=== PATIENT | male | born 1950 | race Caucasian/White ===

== ENCOUNTER 2023-08-15 06:11 | Day surgery (SDC) | payer OTHER ==
[2023-08-09 11:44] VITALS: BMI 26.2
[2023-08-15] MEDS ORDERED: CEFAZOLIN 2 GM in DEXTROSE 5%-WATER - 100 ML IVPB ONE (06:25)
[2023-08-15] MEDS ORDERED: VANCOMYCIN 1,000 MG VIAL (RESTRICTED TO ID ONLY) ONE (07:13)
[2023-08-15] MEDS ORDERED: TRANEXAMIC ACID 1000 MG/10 ML VIAL ONE (07:13)
[2023-08-15] MEDS ORDERED: ROPIVACAINE HCL 0.5% 30ML VIAL ONE (07:22)
[2023-08-15] MEDS ORDERED: MIDAZOLAM HCL 2 MG/2 ML SINGLE DOSE VIAL ONE (07:22)
[2023-08-15] MEDS ORDERED: ROCURONIUM BROMIDE 50 MG/5 ML SYRINGE ONE (07:38)
[2023-08-15] MEDS ORDERED: PROPOFOL 20 ML ONE ×2 (07:38→09:55)
[2023-08-15] MEDS: VANCOMYCIN 1,000 MG VIAL (RESTRICTED TO ID ONLY) IVPB ONE (09:36)
[2023-08-15] MEDS ORDERED: NEOSTIGMINE METHYLSULFATE 0.5 MG/1 ML - 10 ML MDV ONE (09:44)
[2023-08-15] MEDS ORDERED: ONDANSETRON 4 MG/2 ML VIAL IVPUSH PRN ×2 (10:24→10:29)
[2023-08-15] MEDS ORDERED: MAGNESIUM HYDROX 2400MG/30ML ORAL SUSPENSION 30 ML CUP PO PRN (10:24)
[2023-08-15] MEDS ORDERED: MAG HYDROX/AL HYDROX/SIMETH 30 ML UNIT-DOSE CUP PO PRN (10:24)
[2023-08-15] MEDS ORDERED: LACTATED RINGERS SOLUTION 1,000 ML IV SCH ×2 (10:30)
[2023-08-15] MEDS ORDERED: MV MIN PO SCH (10:45)
[2023-08-15] MEDS ORDERED: EPA PO SCH (10:45)
[2023-08-15] MEDS ORDERED: DHA PO SCH (10:45)
[2023-08-15] MEDS ORDERED: [UNRECOGNIZED DRUG - OTHER] PO SCH (10:45)
[2023-08-15] MEDS ORDERED: COQ10 PO SCH (10:45)
[2023-08-15] MEDS: oxyCODONE HCL 5 MG TABLET PO PRN ×2 (15:34→21:23)
[2023-08-15] MEDS: CEFAZOLIN SODIUM 2 GM in DEXTROSE 5%-WATER 100 ML IVPB SCH (16:02)
[2023-08-15] MEDS: FUROSEMIDE 20 MG TABLET (FP) PO SCH (17:02)
[2023-08-15] MEDS: TRANEXAMIC ACID 1000 MG/10 ML VIAL IVPUSH ONE (17:03)
[2023-08-15] MEDS: ACETAMINOPHEN 1000 MG/100 ML BAG IVPB SCH (20:11)
[2023-08-15] MEDS: VANCOMYCIN/WATER FOR INJ (PEG) 1 GM/200 ML BAG IVPB ONE (20:11)
[2023-08-15] MEDS: SACUBITRIL/VALSARTAN 49 MG-51 MG TABLET PO SCH (21:22)
[2023-08-15] MEDS: SENNOSIDES/DOCUSATE COMBO (SENNA PLUS) TABLET (UD) PO SCH (21:22)
[2023-08-15] MEDS: ATORVASTATIN CA 10 MG TABLET (FP) PO SCH (21:22)
[2023-08-15] MEDS: GABAPENTIN 300 MG CAPSULE PO SCH (21:22)
[2023-08-16 07:43] LABS: HEMATOCRIT 38.3 % (35.4-49); HEMOGLOBIN 12.6 G/dL (11.7-16.9); MCH 29.4 pg (25.7-33.7); MCHC 32.9 g/dl (32.0-35.9); MEAN CELL VOLUME 89.5 fl (80-96); MEAN PLT VOLUME 7.9 fl (7.5-11.1); PLATELET COUNT 161.5 10^3/uL (134-434); RBC 4.28 10^6/uL (4.00-5.60); RDW 15.6 % (11.9-15.9); WHITE BLOOD COUNT 7.7 10^3/uL (4.0-10.8)
[2023-08-16 07:56] LABS: CALCIUM 8.4 mg/dl (8.5-10.1); CREATININE 0.6 mg/dl (0.6-1.3)
[2023-08-16] MEDS: CYANOCOBALAMIN 1,000 MCG TABLET (FP) PO SCH (09:30)
[2023-08-16] MEDS: FENOFIBRIC ACID 45 MG CAP PO SCH (09:30)
[2023-08-16] MEDS: MULTIVITAMINS (DAILY MVI) TABLET (FP) PO SCH (09:30)
[2023-08-16] MEDS: FOLIC ACID 1 MG TABLET (FP) PO SCH (09:31)
[2023-08-16] MEDS: PANTOPRAZOLE 40 MG TABLET PO SCH (09:31)
[2023-08-16] MEDS: CHOLECALCIFEROL (VIT D3) 1,000 UNIT (25 MCG) TABLET PO SCH (09:31)
[2023-08-16] MEDS: AMIODARONE HCL 200 MG TABLET PO SCH (09:31)
[2023-08-16] MEDS ORDERED: PATIENT'S OWN MEDICATION (NON-FORMULARY) (Dapagliflozin Propanediol [Farxiga] 5 MG Tablet) PO SCH (10:00)
[2023-08-16 10:05] VITALS: TEMP 97.5
[2023-08-16] MEDS: ASPIRIN COATED 81 MG TABLET.EC PO SCH (10:08)
[2023-08-16 12:23] VITALS: BP 132/67; PULSE 75; RESP 16
== END 2023-08-16 12:14 | disposition home or self-care (01) ==
LOC: FASUSAT 06:11 → FM/S 11:51 → FASUSAT 08-16 12:14
PROC: 0LS30ZZ Reposition Right Upper Arm Tendon, Open Approach (ICD-10-PCS; 2023-08-15)
PROC: 0RRJ00Z Replacement of Right Shoulder Joint with Reverse Ball and Socket Synthetic Substitute, Open Approach (ICD-10-PCS; principal; 2023-08-15 08:14)
DX: M19.011 Primary osteoarthritis, right shoulder (principal); M75.101 Unspecified rotator cuff tear or rupture of right shoulder, not specified as traumatic; M75.21 Bicipital tendinitis, right shoulder
CPT/HCPCS: 23430; 23472; C1776; 36415; 73030-TC-RT-FY; 80048; 82962; 85027; 88304-TC; 88305-TC; 88311-TC; 94760; 97116-GP; 97161-GP; C1713; C1757; C1889; J0131